=== PATIENT | male | born 1935 | race Hispanic/Latino ===

== ENCOUNTER 2017-05-20 13:22 | Emergency (ER) | payer MEDICARE, OTHER ==
[2017-05-20 13:43] VITALS: RESP 20; O2SAT 100
--- NOTE | 2017-05-20 14:14 | C.PDOC ---
History Of Present Illness 82 yr old male presents to the ER s/p fall. Patient reports he crossed the street and believes he might of missed the step and fell face forward, sustaining laceration toe bilateral eyebrows, upper lip and injury to the nose causing nose bleed. Patient denies LOC, chest pain, SOB, nausea, vomiting, neck pain, headache, weakness or numbness. 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 ENT: Positive for: Nose Discharge (Epistaxis) Cardiovascular: Negative for: Chest Pain Respiratory: Negative for: Shortness of Breath Gastrointestinal: Negative for: Nausea, Vomiting Musculoskeletal: Negative for: Neck Pain Skin: Positive for: Other (Laceration to bilateral eyebrows and upper lip.) Neurological: Negative for: Weakness, Numbness, Headache Physical Exam - Physical Exam Appears: Non-toxic, No Acute Distress Skin: Warm, Dry, No Rash, Other ((+) Two 1cm laceration to the medial aspect of bilateral eyebrows.) Head: Atraumatic, Normacephalic Eye(s): bilateral: PERRL, EOMI Ear(s): Bilateral: Normal Nose: Epistaxis, No Deformity, Tenderness (To the nasal bridage), No Septal Hematoma Oral Mucosa: Moist Tongue: Normal Appearing Lips: Laceration (1cm to the upperlip) Throat: Normal, No Erythema, No Exudate Neck: Normal, Normal ROM, Supple Chest: Symmetrical, No Tenderness Cardiovascular: Rhythm Regular, No Friction Rub, No Murmur Respiratory: Normal Breath Sounds, No Rales, No Rhonchi, No Stridor, No Wheezing Gastrointestinal/Abdominal: Soft, No Tenderness Extremity: Normal ROM, No Swelling Neurological/Psych: Oriented x3, Normal Speech, Normal Motor Gait: Steady ED Course And Treatment O2 Sat by Pulse Oximetry: 100 (RA) Pulse Ox Interpretation: Normal - CT Scan/US CT - Head Other Rad Studies (CT/US): Read By Radiologist, Radiology Report Reviewed CT/US Interpretation: PROCEDURE: CT HEAD WITHOUT CONTRAST. HISTORY: head injury. COMPARISON: None available. TECHNIQUE: Axial computed tomography images were obtained through the head/brain without intravenous contrast. Radiation dose: Total exam DLP = 1330.58 mGy-cm. This CT exam was performed using one or more of the following dose reduction techniques: Automated exposure control, adjustment of the mA and/or kV according to patient size, and/ or use of iterative reconstruction technique. FINDINGS: HEMORRHAGE: No intracranial hemorrhage. BRAIN: No mass effect or edema. Mild age- appropriate diffuse atrophy. No evidence of acute infarct. VENTRICLES: Unremarkable. No hydrocephalus. CALVARIUM: Unremarkable. PARANASAL SINUSES: Unremarkable as visualized. No significant inflammatory changes. MASTOID AIR CELLS: Unremarkable as visualized. No inflammatory changes. OTHER FINDINGS: None. IMPRESSION: No intracranial hemorrhage. Age-appropriate atrophy. CT - Maxillofacial Other Rad Studies (CT/US): Read By Radiologist, Radiology Report Reviewed CT/US Interpretation: PROCEDURE: CT MAXILLOFACIAL BONES WITHOUT CONTRAST. HISTORY: facial injury, nasal injury. COMPARISON: None. TECHNIQUE: Contiguous axial CT images of the maxillofacial bones were obtained. Coronal and sagittal reformats were generated. Radiation dose: Total exam DLP = 813.01 mGy-cm. This CT exam was performed using one or more of the following dose reduction techniques: Automated exposure control, adjustment of the mA and/ or kV according to patient size, and/or use of iterative reconstruction technique. FINDINGS: NASAL BONES: Unremarkable. ORBITS: Unremarkable. PARANASAL SINUSES/ MASTOIDS: Chronic frontal, ethmoid and right maxillary sinusitis. . MAXILLA: Unremarkable. MANDIBLE/ TEMPOROMANDIBULAR JOINTS: Unremarkable. SKULL BASE: Unremarkable. TEMPORAL BONES: Middle ears and mastoid grossly unremarkable. OTHER FINDINGS: None. IMPRESSION: No evidence of facial fracture. Chronic paranasal sinusitis. Laceration - Laceration Repair Bilateral Eyebrows Wound Length (In cm): 2.5 Description Of Wound: Linear Wound Cleansed With: Betadine, Sterile Saline Wound Examination: Irrigated With Saline, No FB With Wound Exploration Wound Closure: Steri Strips, Skin Glue Right Upper Lip Wound Length (In cm): 1.5 Description Of Wound: Linear Wound Cleansed With: Sterile Saline Anesthesia: Lidocaine 1% Wound Examination: Irrigated With Saline, No FB With Wound Exploration Wound Closure: Suture (4-0) Suture Technique And Material Used: Interrupted, Vicryl (3) Wound Complexity: Simple Medical Decision Making Medical Decision Making: PLAN: * CT - Head, Maxillofacial On re-exam, the patient reports improvement of symptoms. Lungs are CTA, heart is RRR, Abdomen is soft, non-tender and tolerating PO well. Ambulatory in the ED with steady gait. Follow up with the medical doctor within 1-2 days. Return if worsened. Disposition - Disposition Referrals: Marilia Huertas MD [Staff Provider] - Disposition: HOME/ ROUTINE Disposition Time: 16:28 Condition: GOOD Additional Instructions: Keep the wound on the eyebrows dry, do not wet them. The strips will fall off in 3-5 days. Rinse mouth out with water after eating. Follow up with the medical doctor within 1-2 days. Return if worsened Prescriptions: Acetaminophen [Tylenol] 325 mg PO Q6 PRN #30 tab PRN Reason: Pain, Mild (1-3) Instructions: Head Injury (ED), Facial Laceration (ED) Forms: [facility] ([place]ran) - Clinical Impression Clinical Impression: Head injury, Facial laceration, Lip laceration - PA / DESKTOP SUPPORT SPECIALIST / Resident Statement MD/DO has reviewed & agrees with the documentation as recorded. - Scribe Statement The provider has reviewed the documentation as recorded by the Scribe Denise Arora All medical record entries made by the Scribe were at my direction and personally dictated by me. I have reviewed the chart and agree that the record accurately reflects my personal performance of the history, physical exam, medical decision making, and the department course for this patient. I have also personally directed, reviewed, and agree with the discharge instructions and disposition.
--- NOTE | 2017-05-20 15:13 | CT ---
PROCEDURE: CT HEAD WITHOUT CONTRAST. HISTORY: head injury COMPARISON: None available. TECHNIQUE: Axial computed tomography images were obtained through the head/brain without intravenous contrast. Radiation dose: Total exam DLP = 1330.58 mGy-cm. This CT exam was performed using one or more of the following dose reduction techniques: Automated exposure control, adjustment of the mA and/or kV according to patient size, and/or use of iterative reconstruction technique. FINDINGS: HEMORRHAGE: No intracranial hemorrhage. BRAIN: No mass effect or edema. Mild age-appropriate diffuse atrophy. No evidence of acute infarct. VENTRICLES: Unremarkable. No hydrocephalus. CALVARIUM: Unremarkable. PARANASAL SINUSES: Unremarkable as visualized. No significant inflammatory changes. MASTOID AIR CELLS: Unremarkable as visualized. No inflammatory changes. OTHER FINDINGS: None. IMPRESSION: No intracranial hemorrhage. Age-appropriate atrophy.
--- NOTE | 2017-05-20 15:16 | CT ---
PROCEDURE: CT MAXILLOFACIAL BONES WITHOUT CONTRAST HISTORY: facial injury, nasal injury COMPARISON: None TECHNIQUE: Contiguous axial CT images of the maxillofacial bones were obtained. Coronal and sagittal reformats were generated. Radiation dose: Total exam DLP = 813.01 mGy-cm. This CT exam was performed using one or more of the following dose reduction techniques: Automated exposure control, adjustment of the mA and/or kV according to patient size, and/or use of iterative reconstruction technique. FINDINGS: NASAL BONES: Unremarkable. ORBITS: Unremarkable. PARANASAL SINUSES/ MASTOIDS: Chronic frontal, ethmoid and right maxillary sinusitis. . MAXILLA: Unremarkable. MANDIBLE/ TEMPOROMANDIBULAR JOINTS: Unremarkable. SKULL BASE: Unremarkable. TEMPORAL BONES: Middle ears and mastoid grossly unremarkable. OTHER FINDINGS: None. IMPRESSION: No evidence of facial fracture. Chronic paranasal sinusitis.
[2017-05-20] MEDS ORDERED: Lidocaine 1% Inj (20ml) ONE (15:29)
[2017-05-20] MEDS ORDERED: Epinephrine /Lidocaine HCL 1:100,000/2% 30 ml INJ ONE (15:30)
[2017-05-20 16:41] VITALS: BP 136/80; PULSE 66; TEMP 97.9
== END 2017-05-20 16:48 | disposition home or self-care (01) ==
LOC: C.ER 13:22
DX: S01.112A Laceration without foreign body of left eyelid and periocular area, initial encounter (principal); S01.111A Laceration without foreign body of right eyelid and periocular area, initial encounter; S01.511A Laceration without foreign body of lip, initial encounter; W18.39XA Other fall on same level, initial encounter; Y92.410 Unspecified street and highway as the place of occurrence of the external cause